=== PATIENT | male | born 2000 | race Caucasian/White ===

== ENCOUNTER 2022-08-25 10:10 | Emergency (ER) | payer BC ==
[~2022-08-25] VITALS: Ht 180.3 cm; Wt 113.4 kg
[2022-08-25 10:41] VITALS: BP_SYST 148
[2022-08-25] MEDS ORDERED: TRAM50TA2 PO (11:38)
[2022-08-25 12:32] VITALS: BP_SYST 148
== END 2022-08-25 11:51 | disposition home or self-care (01) ==
LOC: SED 10:10
DX: F07.81 Postconcussional syndrome (principal); R51.9 Headache, unspecified; R11.2 Nausea with vomiting, unspecified; R42 Dizziness and giddiness; Z79.899 Other long term (current) drug therapy
CPT/HCPCS: 70450-TC; 76376; 99284

== ENCOUNTER 2023-07-17 13:39 | Emergency (ER) | payer BC ==
[~2023-07-17] VITALS: Ht 180.3 cm; Wt 99.8 kg
[~2023-07-17 13:39] MED LIST: TRAM50TA2 PO
[2023-07-17 13:47] VITALS: BP_SYST 154; PULSE 61; RESP 18; TEMP 97.6; O2SAT 99
[2023-07-17] MEDS: IPRATROPIUM/ALBUTEROL SULFATE 3 ML AMPUL.NEB (DUONEB) INH ONE (14:03)
[2023-07-17] MEDS: predniSONE 20 MG TABLET PO ONE (14:25)
[2023-07-17 14:49] LABS: BASOPHILS % (AUTO) 0.6 % (0.0-2.0); EOSINOPHILS # (AUTO) 0.2 K/uL (0.0-0.4); EOSINOPHILS % (AUTO) 2.3 % (0.0-4.0); HEMATOCRIT 45.5 % (36-54); HEMOGLOBIN 15.5 g/dL (14.0-18.0); LYMPHOCYTES # (AUTO) 1.6 K/uL (1.0-5.5); LYMPHOCYTES % (AUTO) 21.1 % (20.5-51.5); MEAN CORPUSCULAR HEMOGLOBIN 31 pg (27-31); MEAN CORPUSCULAR HGB CONC 34 % (32-36); MEAN CORPUSCULAR VOLUME 92 fL (79.0-98.0); MONOCYTES # (AUTO) 0.4 K/uL (0.0-1.0); MONOCYTES % (AUTO) 5.6 % (1.7-9.3); NEUTROPHILS # (AUTO) 5.4 K/uL (1.8-7.7); NEUTROPHILS % (AUTO) 70.4 % (40.0-70.0); PLATELET COUNT (AUTO) 277 K/uL (130-430); RED BLOOD CELL COUNT(AUTO) 4.98 MIL/uL (4.2-6.2); RED CELL DISTRIBUTION WIDTH 13.2 % (9.0-15.0); WHITE BLOOD COUNT (AUTO) 7.6 K/uL (4.8-10.8)
[2023-07-17 14:54] LABS: ANION GAP 9 (5-15); CALCIUM 9.3 mg/dL (8.4-11.0); CARBON DIOXIDE 28 mmol/L (23-29); CHLORIDE 102 mmol/L (98-107); GFR AFRICAN AMERICAN 183 mL/min (>90); GLUCOSE 109 mg/dL (74-106); POTASSIUM 3.8 mmol/L (3.5-5.1); SODIUM SERUM 139 mmol/L (136-145); UREA NITROGEN, BLOOD 13 mg/dL (8-21)
[2023-07-17 14:55] LABS: GFR NON AFRICAN-AMERICAN 151 mL/min (>90)
[2023-07-17 14:59] LABS: INR 1.1 (0.80-1.20); PROTHROMBIN TIME 10.9 SECS (9.5-12.5)
[2023-07-17] MEDS: IBUPROFEN 800 MG TABLET PO ONE (15:48)
[2023-07-17] MEDS ORDERED: PRED20TA PO (15:49)
[2023-07-17] MEDS ORDERED: IBUP-1969 PO (15:49)
[2023-07-17] MEDS ORDERED: ALBMDI INH (15:49)
[2023-07-17 15:55] VITALS: BP_SYST 154; PULSE 61; RESP 18; TEMP 97.6; O2SAT 98
== END 2023-07-17 15:55 | disposition home or self-care (01) ==
LOC: SED 13:39
DX: J45.901 Unspecified asthma with (acute) exacerbation (principal); R07.89 Other chest pain; Z79.899 Other long term (current) drug therapy
CPT/HCPCS: 99285; 71045; 80048; 83880; 85025; 85610; 85730; 84484; 36415; 93005; 94640; 94760; J7512